=== PATIENT | female | born 1940 | race Caucasian/White ===

== ENCOUNTER → 2020-06-26 | Outpatient (CLI) | payer OTHER ==
[~2020-06-26] MED LIST: AMLODIPINE BESY10 MG PO; ARTIFICIAL TEAR1510 OPHTHALMIC; ASA81BEC PO; ATORVASTATIN CA80 MG PO; CALCIUM 500 +1 EACH PO; EZETIMIBE10 MG PO; FISH OIL 1,0001 EAC9 PO; LOPRESSOR50 PO; LOSARTAN POTAS100 MG PO; OCUVITE TABLET1 EAC1 PO; ONE-DAILY MULT1 EAC1 PO; VITAMIN D310 MC1 PO
--- NOTE | ~2020-06-26 | O ---
[facility] [place] [address] OPERATIVE REPORT Name: THELMA ZEPEDA Room #: REG MAXIMO Marley#: [id number] Admission: 06/26/20 Attend Phys: Anni Vogt DO Discharge: Date of : 44 Report #: [id number] THIS REPORT FOR: cc: Jeffrey Vogel MD, Usman MD White,Jerad Grande MD ~ DOC #: [id number] cc: Dr. Jeffrey Vogel, Dr. Alejandro New MD DATE OF SERVICE: 06/27/2020 SURGEON: Jerad New MD PREOPERATIVE DIAGNOSIS: Bilateral nasal lacrimal duct obstruction. POSTOPERATIVE DIAGNOSIS: Bilateral nasal lacrimal duct obstruction. OPERATION PERFORMED: Bilateral endoscopic dacryoplasty with silicone intubation. ANESTHESIA: General. COMPLICATIONS: None. INDICATIONS FOR SURGERY: This patient has acquired bilateral nasal lacrimal duct stenosis with chronic tearing and discharge, both eyes. The current procedures are undertaken in order to improve the patient's level of lacrimal outflow and visual clarity. Informed consent was obtained to include but not limited to the potential risks for damage to the eye, loss of vision, bleeding, infection, failure to improve the problem and need for further surgery. DESCRIPTION OF OPERATION: The patient was taken to the operating room, where general anesthesia was administered. The medial canthi were anesthetized with 2% Xylocaine with epinephrine mixed with equal parts of 0.75% Marcaine with Wydase. The lateral blanton of the nose were then bilaterally injected with the same anesthetic mixture. The nose was packed with Afrin-soaked cottonoids. The patient was then prepped and draped in the usual sterile fashion. A moist compress was placed on the left eye while attention was turned to the right side. The superior and inferior puncta were then atraumatically dilated with a punctum dilator. A size 0 lacrimal probe was then passed through the superior canalicular system and through the stenosed nasal lacrimal duct. The nasal [facility] [address] [place] [address] OPERATIVE REPORT Name: KATELYNTHELMA Blaine Room #: REG MAXIMO Marley#: [id number] Admission: 06/26/20 Attend Phys: Anni Vogt, DO Discharge: Date of : 44 Report #: [id number] packing was removed and the endoscope was brought into the field. The inferior turbinate was gently infractured with a Cortland periosteal elevator to allow visualization of the inferior meatus in the area of the opening of the valve of Hasner in the nose. The probe was found and confirmed to be in the proper location. It was removed and subsequently replaced with a size 1 and a size 2 Andujar probe, which also had their passage confirmed endoscopically to be in the proper location. A 3 by 15 LacriCatheter was lubricated with a small quantity of ophthalmic antibiotic ointment. The LacriCatheter was then passed through the superior canalicular system and the stenosed nasal lacrimal duct. The LacriCatheter was confirmed to be in the proper location endoscopically intranasally in the inferior meatus. The LacriCatheter was inflated to 9 atmospheres for 90 seconds and deflated. The catheter was then inflated to 9 atmospheres for 60 seconds. The catheter was then withdrawn to the proximal black ring. It was then inflated to 9 atmospheres for 90 seconds. The balloon was then deflated and reinflated to 9 atmospheres for 60 seconds. The balloon was the aspirated and withdrawn to the distal black ring. It was then inflated to 9 atmospheres for 90 seconds. The balloon was deflated and reinflated to 9 atmospheres for 60 seconds. The balloon was then deflated and vigorously aspirated as it was withdrawn through the superior canalicular system. A Andrade tube was then passed through the superior canalicular system and out the dilated duct. The Andrade tube was secured under the inferior turbinate in the inferior meatus with a Andrade hook and retrieved endoscopically. The Andrade tube was then passed through the inferior canalicular system in a similar fashion and was retrieved endoscopically in the nose atraumatically. The Andrade tube was then secured to itself with 3 square throws and then to the lateral wall of the nose with a 5-0 Prolene suture. Attention was then turned to the other side, where the same procedure was performed. Antibiotic steroid drops were then placed in both eyes. A small quantity of ophthalmic antibiotic ointment was placed on the Andrade tube. The patient was then transported to the recovery area with no anesthetic or operative complications being noted. Jerad New MD [facility]/ALL By: [id number] Jerad New MD /nt
== END ==
LOC: LABMALL 07:12 → PAC 07:25
PROVIDERS: Ophthalmology; ATTEND Student in an Organized Health Care Education/Training Program
DX: Z01.818 Encounter for other preprocedural examination (principal); Z20.822 Contact with and (suspected) exposure to COVID-19

== ENCOUNTER 2020-06-27 06:13 | Day surgery (SDC) | payer OTHER ==
[~2020-06-27] VITALS: Ht 149.9 cm; Wt 62.1 kg
[2020-06-27 08:18] VITALS: BP 132/54
== END 2020-06-27 09:45 | disposition home or self-care (01) ==
LOC: OR → TBA 06:14 → OR 08:54
PROVIDERS: ATTEND Ophthalmology
DX: H04.553 Acquired stenosis of bilateral nasolacrimal duct (principal); I10 Essential (primary) hypertension; I25.10 Atherosclerotic heart disease of native coronary artery without angina pectoris; E78.5 Hyperlipidemia, unspecified; E78.00 Pure hypercholesterolemia, unspecified; I25.2 Old myocardial infarction; Z98.890 Other specified postprocedural states; Z79.899 Other long term (current) drug therapy; Z95.1 Presence of aortocoronary bypass graft; Z87.891 Personal history of nicotine dependence
CPT/HCPCS: 50010; 50101; 50261; 50386; 50398; 51777; 56528; 62110; 62900; 70005

== ENCOUNTER → 2021-03-27 | Day surgery (SDC) | payer OTHER ==
[~2021-03-27] VITALS: Ht 149.9 cm; Wt 62.1 kg
[2021-03-27 07:12] VITALS: BP 130/74
--- NOTE | 2021-03-27 11:38 | O ---
[facility] [place] [address] OPERATIVE REPORT Name: THELMA ZEPEDA Room #: REG [facility]#: [id number] Admission: 03/27/21 Attend Phys: Jerad New MD Discharge: Date of : 44 Report #: [id number] THIS REPORT FOR: cc: Jeffrey Vogel MD, Usman MD White,Jerad Grande MD ~ cc: Jeffrey Bergman DATE OF SERVICE: 03/27/2021 SURGEON: Jerad New MD NETWORK SYSTEMS CONSULTANT: None. PREOPERATIVE DIAGNOSIS: Bilateral lower lid ectropion. POSTOPERATIVE DIAGNOSIS: Bilateral lower lid ectropion. OPERATION PERFORMED: Bilateral lower lid ectropion repair. ANESTHESIA: Local with IV sedation. COMPLICATIONS: None. INDICATIONS FOR PROCEDURE: This patient has bilateral acquired lower lid ectropion with chronic tearing, keratopathy and discharge. The current procedures are undertaken in order to improve the patient's visual function, lacrimal outflow, and level of comfort. Informed consent was obtained to include but not limit to the risk of loss of vision, bleeding, infection, scarring, failure to improve the problem and need for further surgery. DESCRIPTION OF OPERATION: The patient was taken to the operating room where 2% Xylocaine with epinephrine mixed with equal parts of 0.75% Marcaine with Wydase was administered transcutaneously and transconjunctivally to each lower lid and lateral canthal area. The patient was then prepped and draped in the usual sterile fashion. A La clamp was then used to clamp the left lateral canthus following which a sharp canthotomy and cantholysis were performed. The tarsal strip was prepared laterally, removing the lash bearing portion of the redundant lid margin and the redundant tarsal plate. Hemostasis was achieved with a monopolar cautery, as it was throughout the case. The tarsal strip was then secured to the internal portion of the lateral orbital tubercle with two interrupted 5-0 Prolene sutures. The lateral canthal angle was sharply reformed as the subcutaneous structures and the skin were closed with multiple interrupted 6-0 plain gut sutures. Attention was then turned to the right side where the same procedure was [address] [address] OPERATIVE REPORT Name: KATELYNTHELMA Blaine Room #: REG [facility]..#: [id number] Admission: 03/27/21 Attend Phys: Jerad New MD Discharge: Date of : 44 Report #: [id number] performed. The wounds were cleaned and dressed with ophthalmic antibiotic ointment. The patient was then transported to the recovery area, having tolerated the procedure well with no anesthetic or operative complications being noted. <ELECTRONICALLY SIGNED> By: Jerad New MD 03/27/21 [id number] Jerad New MD /nt
== END | disposition home or self-care (01) ==
LOC: OR 06:06
PROVIDERS: ATTEND Ophthalmology
DX: H02.105 Unspecified ectropion of left lower eyelid (principal); H02.102 Unspecified ectropion of right lower eyelid; I10 Essential (primary) hypertension; I25.10 Atherosclerotic heart disease of native coronary artery without angina pectoris; E78.00 Pure hypercholesterolemia, unspecified; I25.2 Old myocardial infarction; Z98.890 Other specified postprocedural states; Z79.899 Other long term (current) drug therapy; Z95.1 Presence of aortocoronary bypass graft; Z98.41 Cataract extraction status, right eye; Z20.822 Contact with and (suspected) exposure to COVID-19; Z98.42 Cataract extraction status, left eye; Z88.0 Allergy status to penicillin
CPT/HCPCS: 50010; 50101; 50386; 50398; 51636; 56527; 56531; 62110; 62900; 70005